=== PATIENT | female | born 1940 | race Caucasian/White ===

== ENCOUNTER 2017-09-02 20:26 | Emergency (ER) | payer MEDICARE, OTHER ==
[2017-09-02 21:09] LABS: #Basophils 0.1 thou/uL (0.0-0.2); #Eosinphils 0.1 thou/uL (0.0-0.7); #Lymphocytes 1.7 thou/uL (1.20-3.40); #Monocytes 0.3 thou/uL (0.11-0.59); #Neutrophils 4.7 thou/uL (1.40-6.50); %Eosinophils 1.6 % (0.0-10.0); %Lymphocytes 24.7 % (21.0-51.0); %Monocytes 3.6 % (0.0-10.0); %Neutrophils 69.1 % (42.0-75.0); Hemoglobin 15.1 g/dL (12.0-16.0); Mean Corpuscular HGB CONC 33.1 g/dL (32.0-36.0); Mean Corpuscular Hemoglobin 33.9 pg (27.0-31.0); Platelet Count 232 thou/uL (130-400); RBC Distribution Width 14.7 % (11.5-14.5); Red Blood Cell (RBC) Count 4.46 mill/uL (4.20-5.40); White Blood Cell (WBC) Count 6.8 thou/uL (4.8-10.8)
--- NOTE | 2017-09-02 21:59 | RAD ---
TWO VIEWS OF THE CHEST: 09/02/17 COMPARISON: 09/25/16 HISTORY: Pneumonia and cough. FINDINGS: two views of the chest shows a normal sized cardiomediastinal silhouette with atherosclerotic calcifi cations in the aorta. Hyperexpansion of the lungs and increased interstitial lung markings are second tevin to COPD. There is stable scarring in the mid portion of the left thorax. No consolidation or pleu ral effusion are seen. IMPRESSION: 1. No evidence of acute cardiopulmonary disease. 2. Left lung scarring. POS: [facility]
== END 2017-09-02 23:43 | disposition home or self-care (01) ==
LOC: ERS 20:26
DX: R06.02 Shortness of breath (principal); F32.9 Major depressive disorder, single episode, unspecified; F17.210 Nicotine dependence, cigarettes, uncomplicated; I10 Essential (primary) hypertension; Z85.3 Personal history of malignant neoplasm of breast; Z79.899 Other long term (current) drug therapy
CPT/HCPCS: 36415; 71046; 85025

== ENCOUNTER 2018-11-17 09:33 | Outpatient (CLI) | payer MEDICARE, OTHER ==
--- NOTE | 2018-11-17 11:21 | ULT ---
BILATERAL CAROTID DUPLEX ULTRASOUND INCLUDING COLOR AND SPECTRAL DOPPLER IMAGING: HISTORY: Right carotid bruit. FINDINGS: Extensive plaque in the origin of the right ICA and ECA. PSV right ICA 130 cm/s. EDV 31 cm/s. ICA/CCA ratio is 1.7. PSV left ICA 118 cm/s. EDV 41 cm/s. There is essentially complete occlusion of the left CCA with intermittent trickle flow. There is retrograde flow in the left ECA. Increased velocity in the right ECA. Vertebral flow is antegrade. IMPRESSION: 1. Moderate plaque in the right internal carotid artery and external carotid artery, but no hemodyna mically significant stenosis. 2. 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 3. Essentially occluded left common carotid artery. Consider followup CT angiogram for further assessment. POS: [facility]
== END 2018-11-17 09:34 | disposition home or self-care (01) ==
LOC: ULT 09:33
PROVIDERS: ATTEND Nurse Practitioner Family
DX: R09.89 Other specified symptoms and signs involving the circulatory and respiratory systems (principal); I65.23 Occlusion and stenosis of bilateral carotid arteries
CPT/HCPCS: 93880

== ENCOUNTER 2018-12-11 12:53 | Outpatient (CLI) | payer MEDICARE, OTHER ==
--- NOTE | 2018-12-11 13:52 | CT ---
EXAM: CTA neck with contrast HISTORY: Carotid stenosis COMPARISON: Carotid ultrasound 11/17/2018; chest CT 01/15/2017 TECHNIQUE: Multiple contiguous axial images were obtained and a CTA of the neck with contrast. 3-D sagittal and coronal MIP reformats were performed. FINDINGS: CTA NECK: Aortic arch: The left subclavian artery arises from the aortic arch separate from the subclavian emanuel ry. 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 Right common carotid artery: Moderate distal atherosclerotic calcified plaque. Left common carotid artery: Occluded Right internal carotid artery: Approximately 50% stenosis in the immediate proximal vessel per NASCET criteria Right external carotid artery: No significant atherosclerotic disease or narrowing Left internal carotid artery: There is reestablishment of flow in the left internal carotid artery vi a collateral flow from the external carotid artery. Left external carotid artery: No significant atherosclerotic disease or narrowing The left vertebral artery is dominant. Right cervical vertebral artery: No significant atherosclerotic disease or narrowing Left cervical vertebral artery: No significant atherosclerotic disease or narrowing No cervical adenopathy. A stable 1.5 cm spiculated region is seen in the left apex. The osseous struc tures are unremarkable. IMPRESSION: 1. Occluded left common carotid artery with reestablishment of flow in the left internal carotid emanuel ry via collaterals from the external carotid artery. 2. Approximately 50% stenosis of the most proximal right internal carotid artery. 3. 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 This is not via the vertebral artery which has a more proximal origin from the aortic arch. 4. Spiculated region in the left apex likely represents scarring.
== END 2018-12-11 12:54 | disposition home or self-care (01) ==
LOC: SCSCT 12:53
PROVIDERS: ATTEND Thoracic Surgery (Cardiothoracic Vascular Surgery)
DX: I65.23 Occlusion and stenosis of bilateral carotid arteries (principal); I70.8 Atherosclerosis of other arteries
CPT/HCPCS: 70498; 82565

== ENCOUNTER → 2021-01-18 | Day surgery (SDC) | payer MEDICARE, OTHER ==
[2021-01-17 12:05] VITALS: BMI 17.2
[2021-01-18 10:04] VITALS: BP 149/79; TEMP 97.8
== END ==
LOC: CT 08:54
PROVIDERS: ATTEND Internal Medicine Pulmonary Disease
PROC: 0BBG3ZX Excision of Left Upper Lung Lobe, Percutaneous Approach, Diagnostic (ICD-10-PCS; principal; 2021-01-18)
PROC: 0CBM8ZX Excision of Pharynx, Via Natural or Artificial Opening Endoscopic, Diagnostic (ICD-10-PCS; 2021-01-18)
DX: C34.12 Malignant neoplasm of upper lobe, left bronchus or lung (principal); C79.9 Secondary malignant neoplasm of unspecified site; R91.8 Other nonspecific abnormal finding of lung field; C01 Malignant neoplasm of base of tongue; J44.9 Chronic obstructive pulmonary disease, unspecified; F17.210 Nicotine dependence, cigarettes, uncomplicated; I10 Essential (primary) hypertension; I25.10 Atherosclerotic heart disease of native coronary artery without angina pectoris; Z86.73 Personal history of transient ischemic attack (TIA), and cerebral infarction without residual deficits; Z79.82 Long term (current) use of aspirin; Z79.899 Other long term (current) drug therapy; R42 Dizziness and giddiness; F10.21 Alcohol dependence, in remission
CPT/HCPCS: 32408; 36415; 71045; 77012; 80048; 85025; 85610; 85730; 88305; 88331; 88333; 88334; 88341; 88342; 88360; 93005; 93010; J0171; J1100; J2250; J2405; J2704; J3010

== ENCOUNTER 2021-03-22 09:45 | Outpatient (CLI) | payer MEDICARE, OTHER ==
[2021-03-22 11:17] LABS: #Basophils 0.1 10x3/uL (0.0-0.2); #Eosinphils 0.3 10x3/uL (0.0-0.5); #Monocytes 0.5 10x3/uL (0.0-1.1); %Basophils 0.5 % (0.0-2.0); %Eosinophils 2.9 % (0.0-6.0); %Lymphocytes 11.9 % (18.0-47.0); %Monocytes 4.5 % (0.0-10.0); %Neutrophils 79.6 % (40.0-75.0); Hemoglobin 12.6 g/dL (12.0-15.5); Mean Corpuscular HGB CONC 31.3 g/dL (32.0-36.0); Mean Corpuscular Hemoglobin 27.5 pg (27.0-33.0); Mean Corpuscular Volume 87.6 fl (81.6-98.3); Mean Platelet Volume 9.3 fl (7.4-10.4); Platelet Count 337 10x3/uL (150-450); RBC Distribution Width 14.2 % (11.5-14.5); Red Blood Cell (RBC) Count 4.59 10x6/uL (3.90-5.03)
[2021-03-22 11:24] LABS: Anion Gap 14 mmol/L (10-20); BUN (Urea Nitrogen) 22 mg/dL (9.8-20.1); Calc. Creatinine Clearance 0 mL/min (70-130); Calcium 9.9 mg/dL (7.8-10.44); Carbon Dioxide 29 mmol/L (23-31); Chloride 99 mmol/L (98-107); Glucose 113 mg/dL (83-110); Potassium 3.6 mmol/L (3.5-5.1); Sodium 138 mmol/L (136-145)
[2021-03-23 01:05] LABS: SARS-CoV-2 PCR by NAA Not Detected (NotDetected)
== END 2021-03-22 09:46 | disposition home or self-care (01) ==
LOC: LABBT 09:45
PROVIDERS: ATTEND Specialist
DX: Z01.818 Encounter for other preprocedural examination (principal); C02.9 Malignant neoplasm of tongue, unspecified; C34.92 Malignant neoplasm of unspecified part of left bronchus or lung; Z20.822 Contact with and (suspected) exposure to COVID-19
CPT/HCPCS: 71046; 80048; 85025; 93005; U0003; U0005; 93010

== ENCOUNTER 2021-03-27 10:59 | Day surgery (SDC) | payer MEDICARE, OTHER ==
[2021-03-26 14:17] VITALS: BMI 16.7
[2021-03-27] MEDS ORDERED: Ketorolac Tromethamine 30 MG/ML VIAL ONE (11:18)
[2021-03-27] MEDS ORDERED: ceFAZolin 2 GM/DEX 5% 100 ML BAG ONE (11:18)
[2021-03-27] MEDS ORDERED: Acetaminophen 500 MG TAB ONE (11:18)
[2021-03-27] MEDS ORDERED: Lidocaine 1% w/Epinephrine 1:100K 20 ML VIAL ONE (13:19)
[2021-03-27] MEDS ORDERED: Bupivacaine 0.25% HCL 30 ML VIAL ONE (13:19)
[2021-03-27] MEDS ORDERED: Fentanyl 100 MCG/2 ML VIAL ONE (13:20)
[2021-03-27] MEDS ORDERED: Ketamine 50 MG/ML (10ML VIAL) ONE (13:21)
[2021-03-27] MEDS ORDERED: Propofol 500 MG/50 ML VIAL ONE ×2 (13:21→13:27)
[2021-03-27] MEDS ORDERED: Lidocaine 1% PF 5 ML VIAL ONE (13:36)
[2021-03-27] MEDS ORDERED: Ondansetron PF 4 MG/2 ML Vial ONE (13:36)
[2021-03-27] MEDS ORDERED: PROPOFOL 200 MG/20 ML VIAL ONE (13:36)
== END 2021-03-27 15:23 | disposition home or self-care (01) ==
LOC: SDC 10:59
PROVIDERS: ATTEND Specialist
PROC: 0JH60WZ Insertion of Totally Implantable Vascular Access Device into Chest Subcutaneous Tissue and Fascia, Open Approach (ICD-10-PCS; principal; 2021-03-27)
PROC: 02HV33Z Insertion of Infusion Device into Superior Vena Cava, Percutaneous Approach (ICD-10-PCS; 2021-03-27)
DX: C34.91 Malignant neoplasm of unspecified part of right bronchus or lung (principal); C34.92 Malignant neoplasm of unspecified part of left bronchus or lung; C02.9 Malignant neoplasm of tongue, unspecified; I65.22 Occlusion and stenosis of left carotid artery; I77.89 Other specified disorders of arteries and arterioles; J44.9 Chronic obstructive pulmonary disease, unspecified; I10 Essential (primary) hypertension; F10.21 Alcohol dependence, in remission; R64 Cachexia; Z68.1 Body mass index [BMI] 19.9 or less, adult; Z85.3 Personal history of malignant neoplasm of breast; Z87.891 Personal history of nicotine dependence; Z79.82 Long term (current) use of aspirin; Z79.899 Other long term (current) drug therapy
CPT/HCPCS: 71045; C1788; J1642; J1885; J2405; J2704; J3010; S0020

== ENCOUNTER 2022-01-16 13:47 | Emergency (ER) | payer MEDICARE, OTHER ==
[~2022-01-16 13:47] MED LIST: Iopamidol-370 76% 500 ML 1 ML ONE
[2022-01-16 15:29] LABS: Hemoglobin 12.9 g/dL (12.0-16.0); Mean Corpuscular HGB CONC 30.4 g/dL (32.0-36.0); Mean Corpuscular Hemoglobin 26.1 pg (27.0-31.0); Mean Corpuscular Volume 86.1 fL (78.0-98.0); Mean Platelet Volume 6.7 fL (7.4-10.4); Platelet Count 487 thou/uL (130-400); RBC Distribution Width 15.5 % (11.5-14.5); Red Blood Cell (RBC) Count 4.92 mill/uL (4.20-5.40)
[2022-01-16 15:44] LABS: Band 5 % (5-11); Hypochromia SLIGHT = 6-15 cells (100X) (0-5/hpf); Lymphocytes 2 % (21-51); MDiff Complete? YES; Monocytes 1 % (0-10); Neutrophil 92 % (42-75); Ovalocytes SLIGHT = 2-5 cells (100X) (0-1/hpf); Platelet Morphology Comment Appears Increased; Polychromasia SLIGHT = 2-3 cells (100X) (0-2/hpf)
[2022-01-16 15:46] LABS: ALT (SGPT) 11 U/L (8-55); AST (SGOT) 14 U/L (5-34); Albumin 3.9 g/dL (3.4-4.8); Alkaline Phosphatase 81 U/L (40-110); Anion Gap 14 mmol/L (10-20); BUN (Urea Nitrogen) 20 mg/dL (9.8-20.1); Bilirubin, Total 0.6 mg/dL (0.2-1.2); Calc. Creatinine Clearance 0 mL/min (70-130); Calcium 9.4 mg/dL (7.8-10.44); Carbon Dioxide 30 mmol/L (23-31); Chloride 100 mmol/L (98-107); Estimated GFR 54; Globulin 3.5 g/dL (2.4-3.5); Glucose 132 mg/dL (83-110); Potassium 3.8 mmol/L (3.5-5.1); Protein, Total 7.4 g/dL (5.8-8.1); Sodium 140 mmol/L (136-145)
[2022-01-16] MEDS ORDERED: Hydrocodone-Acetamin 15 ML UDCUP ONE (15:56)
[2022-01-16] MEDS ORDERED: HYDROcodone/Acetaminophen 7.5/325 mg Tablet ONE (15:59)
[2022-01-16 16:09] LABS: CKMB 2.4 ng/mL (0-6.6)
[2022-01-16 19:30] LABS: Troponin I 0.049 ng/mL (< 0.028)
== END 2022-01-16 19:49 | disposition home or self-care (01) ==
LOC: ERS 13:47
DX: J90 Pleural effusion, not elsewhere classified (principal); G89.3 Neoplasm related pain (acute) (chronic); C34.92 Malignant neoplasm of unspecified part of left bronchus or lung; I10 Essential (primary) hypertension; Z79.82 Long term (current) use of aspirin; Z79.899 Other long term (current) drug therapy
CPT/HCPCS: 36415; 71275; 80053; 82553; 84484; 85025; 93005; Q9967